=== PATIENT | female | born 1990 | race African-American/Black ===

== ENCOUNTER 2021-05-26 14:45 | Emergency (ER) | payer SELFPAY ==
[~2021-05-26] VITALS: Ht 160 cm; Wt 59.0 kg
[2021-05-26 14:47] VITALS: BP 115/59
[2021-05-26] MEDS ORDERED: ONDANSETRON 4MG ODT PO ONE (15:15)
== END 2021-05-26 21:41 | disposition left against medical advice (07) ==
LOC: ER 14:45
DX: Z53.21 Procedure and treatment not carried out due to patient leaving prior to being seen by health care provider (principal)
CPT/HCPCS: 93005